=== PATIENT | female | born 1945 | race Caucasian/White ===

== ENCOUNTER → 2020-12-19 11:22 | Outpatient (CLI) | payer MEDICARE, SELFPAY ==
[2020-12-19 12:31] LABS: HDL Cholesterol 93 mg/dL (40-60); Triglycerides 137 mg/dL (35-150); VLDL Cholesterol Calculated 27 mg/dL (2-30)
[2020-12-19 12:50] LABS: Cholesterol 354 mg/dL (140-199); LDL Cholesterol Calculated 234 mg/dL (<100)
[2020-12-19 12:53] LABS: TSH w/ Reflex to FT4 0.69 uIU/mL (0.47-4.68)
== END ==
PROVIDERS: PCP Student in an Organized Health Care Education/Training Program; Referring Provider Student in an Organized Health Care Education/Training Program; Visit Provider Student in an Organized Health Care Education/Training Program
DX: E03.9 Hypothyroidism, unspecified (principal); E78.2 Mixed hyperlipidemia
CPT/HCPCS: 36415; 80061; 84443

== ENCOUNTER → 2021-01-25 10:09 | Outpatient (CLI) | payer MEDICARE, SELFPAY ==
--- NOTE | 2021-01-25 10:10 | DI.RAD.S_ITS ---
PROCEDURE: FL BARIUM SWALLOW W SPEECH INDICATIONS: F/u aspiration seen on outside CT COMPARISON: None. TECHNIQUE: Examination was conducted in conjunction with speech pathology per standard protocol. In the lateral projection, filming was performed of the patient swallowing. AP projection filming may also be performed with patient swallowing. COMPARISON: FINDINGS: Function: The oral preparatory phase appears normal, with proper containment. The subsequent oral propulsive phase, pharyngeal phase, and esophageal phase of swallowing also appear normal with all proffered substances. No laryngotracheal penetration or aspiration. No pathologic vallecular pooling. Morphology: No cricopharyngeal bar is identified. No cervical esophageal webs. No Zenker's diverticulum. No strictures. IMPRESSION: Normal examination without evidence of laryngotracheal penetration or aspiration. Dictated by: Sierra Espana MD, PhD on 01/25/2021 at 14:50 Approved by: Sierra Espana MD, PhD on 01/25/2021 at 14:50
--- NOTE | 2021-01-25 10:10 | DI.US.S_ITS ---
PROCEDURE: US ABDOMEN LIMITED INDICATIONS: RIGHT LIVER LESION ON OUTSIDE CT TECHNIQUE: Real-time focused scanning was performed of the abdomen, with image documentation. COMPARISON: None. FINDINGS: Liver: Normal size and echotexture. No sonographic evidence of a solid mass. Gallbladder: No wall thickening, pericholecystic fluid, or shadowing gallstones. CBD: 4.4 mm. Pancreas: Normal appearance of the visualized pancreas. IMPRESSION: No significant abnormality. Dictated by: Dae Luu M.D. on 01/25/2021 at 12:08 Approved by: Dae Luu M.D. on 01/25/2021 at 12:10
--- NOTE | 2021-01-26 15:02 | ST.SWALLOW ---
Visit Care Team Role Provider Type Abraham Pan MD Attending Provider Physician Primary Care Provider Referring Provider Specialty: Internal Medicine Address: [address] [place] [address], [address], [place], [address] Email: [email or web address] Modified Barium Swallow Study TRACK WELDER Modified Barium Swallow Study Start: 01/26/21 10:31 Freq: Status: Active Protocol: Document 01/25/21 10:31 LNK (Rec: 01/26/21 11:19 LNK [id number]) Modified Barium Swallow Study Total Time Visit Start Time 13:30 Visit Stop Time 14:00 Total Visit Minutes [address] Pan Setting Setting Outpatient Care Patient Information Identification Type Name,Date of Patient History Pt is seen for a Modified Barium Swallow Study (MBSS) at the referral of Dr. Pan. Pt recently moved to [place], [place] from [facility] in October 2020. Pt has a medical history including hypothyroidism and a moderate sized hiatal hernia. She has recently developed GERD. Pt denies neck injuries or surgery. According to the pt, her physician in [place] had noticed something in her respiratory tract, left side, that looked like food in her lung. This prompted concern for aspiration. Pt described her swallow as I don't think I swallow enough, which elicits a tickle and then I cough. She also noted that she experiences coughing on more days that not. Subjective Observations Pt was seated in the fluoroscopy chair. Instructions and procedures were described for the pt, who indicated she understood and agreed to proceed. Patient Positioning Position View Lateral Imaging Lateral View Textures Administered Trials Presented Thin Liquid via Spoon,Thin Liquid via Cup,Octa Liquid via Cup,Pudding Thick Liquid via Spoon,Regular Textures, Barium Tablet Oral Phase Source: MBSIMP (TM) (C) Bolus Specific Scoring Grid Lip Closure No Impairment (WNL) Tongue Control During Bolus Hold No Impairment (WNL) Bolus Prep/Mastication No Impairment (WNL) Bolus Transport/Lingual Motion No Impairment (WNL) A/P Lingual Propulsion Delay No Oral Residue No Impairment (WNL) Residue Clearing No Impairment (WNL) Nasal Regurgitation No Additional Oral Phase Observations OME was WNL for strength and ROM. Diadochokinesis was WNL. Dentition was natural in good hygiene. ORAL PHASE OF SWALLOW: Pt demonstrated good mastication with a rotary chew . A-P propulsion was WNL. Minimal oral residue was observed following all swallows. Premature lingual spillage to the valeculla pre- swallow was observed indicating tongue base weakness. Small bilateral laryngoceles were noted. Pharyngeal Phase Source: MBSIMP (TM) (C) Bolus Specific Scoring Grid Delayed Initiation of Pharyngeal Swallow No Soft Palate Elevation No Impairment (WNL) Tongue Base Strength/Range of Motion Mild Impairment Residue Along the Tongue Base No Laryngeal Elevation Mild Impairment Anterior Hyoid Movement Mild Impairment Epiglottic Range of Motion Mild Impairment Vallecular Residue Yes Clearance of Vallecular Residue Minimal Impairment Laryngeal Vestibular Closure Mild Impairment Pharyngeal Stripping Wave WFL Posterior Pharyngeal Wall Residue Yes Clearance of Posterior Pharyngeal Wall WFL Residue Upper Esophageal Sphincter Opening Minimal Impairment Residue in the Pyriform Sinuses No Esophageal Clearance Upright Position WFL Pharyngoesophageal Backflow Observed No A/P View A/P View Observations Additional Observations Mildly reduced hyolaryngeal elevation and forward movement was observed, directly impacting the epiglottic inversion as well as the diameter and duration of the UES opening. Reduced contact of the linguopharyngeal muscles was noted, resulting in vallecular pooling of residue. There was flash penetration in the laryngeal vestibule x3. Mild pooling was noted in the valeculla and the posterior pharyngeal wall , which was cleared with subsequent swallows. The barium tablet was swallowed with water. Trace residue mixed with the water allowed for observation of flash penetration of the water resulting in the pt coughing. This was the only time the pt coughed during the MBSS. No aspiration was observed across all trials. Esophageal Observations Esophageal Function An A/P scan of the esophagus indicated that all substances had passed into the stomach. Clinical Impressions Dysphagia Type Mild pharyngeal dysphagia Findings Overall the pt presented with mild pharyngeal dysphagia characterized by reduced hyolaryngal elevation and forward movement, reduced epiglottic closure of the laryngeal vestibule with flash penetration. No aspiration was observed. Dysphagia therapy is recommended to improve laryngeal elevation and forward hyoid movement. Base of tongue and lingual exercises, pt education re: normal swallow and compensatory stategy will be provided for the pt. At this time no change in diet is recommended. it should be noted that flash penetration into the airway is considered to be normal for older pts. Rehabilitation Potential Excellent Patient Appropriate for Therapy Yes Recommendations Treatment Plan Therapy Recommendations Outpatient Speech Therapy, Lingual Exercises,Base of Tongue Exercises,Compensatory Strategy Education [employer] Fishing Vessel Goals Pt will safely tolerate the least restrictive diet without s/sx aspiration.
== END ==
PROVIDERS: PCP Student in an Organized Health Care Education/Training Program; Referring Provider Student in an Organized Health Care Education/Training Program; Visit Provider Student in an Organized Health Care Education/Training Program
DX: T17.908A Unspecified foreign body in respiratory tract, part unspecified causing other injury, initial encounter (principal); K76.9 Liver disease, unspecified
CPT/HCPCS: 74230; 76705; 92611

== ENCOUNTER → 2021-02-08 09:47 | Outpatient (CLI) | payer MEDICARE, SELFPAY ==
--- NOTE | 2021-02-08 09:51 | DI.RAD.S_ITS ---
PROCEDURE: XR DEXA AXIAL SKELETON INDICATIONS: eval and treat COMPARISON: None. FINDINGS: This blank DEXA report has been sent in error by the PACS system. The correct and complete report will be forthcoming in 1-2 days. Thank you for your patience and understanding. Dictated by: Sierra Espana MD, PhD on 02/08/2021 at 14:33 Approved by: Sierra Espana MD, PhD on 02/08/2021 at 14:33
== END ==
PROVIDERS: PCP Student in an Organized Health Care Education/Training Program; Referring Provider Student in an Organized Health Care Education/Training Program; Visit Provider Student in an Organized Health Care Education/Training Program
DX: M85.851 Other specified disorders of bone density and structure, right thigh (principal); Z78.0 Asymptomatic menopausal state
CPT/HCPCS: 77080

== ENCOUNTER 2021-03-06 09:09 | Outpatient (RCR) | payer MEDICARE, SELFPAY ==
--- NOTE | 2021-03-06 11:17 | ST.OPIE ---
Visit Care Team Role Provider Type Abraham Pan MD Attending Provider Physician Family Provider Primary Care Provider Referring Provider Specialty: Internal Medicine Address: [address] [place] [address], [address], [place], [address] Email: [email or web address] Speech-Language Pathology Initial Evaluation DAMASCENER Clinical Swallow Evaluation Start: 03/06/21 10:51 Freq: Status: Active Protocol: Document 03/06/21 10:52 LNK (Rec: 03/06/21 11:16 LNK [id number]) Clinical Swallow Evaluation Session Time Visit Start Time 09:30 Visit Stop Time 10:30 Total Visit Minutes 60 Referral Referring Provider Carolina Reason for Referral Follow up for MBSS Setting Assessment Location Outpatient Care Visit Type Note Type Initial evaluation Next Note Type Next Note Type Discharge Summary Patient Information Identification Type Name,Date of History Pt recently moved to [place], [place] from [facility] in October 2020. Pt has a medical history including hypothyroidism and a moderate sized hiatal hernia. She has recently developed GERD. Pt denies neck injuries or surgery. According to the pt, her physician in [place] had noticed something in her respiratory tract, left side, that looked like food in her lung. This prompted concern for aspiration. Pt described her swallow as I don't think I swallow enough, which elicits a tickle and then I cough. She also noted that she experiences coughing on more days that not. On MBSS, the pt presented with mild pharyngeal dysphagia characterized by reduced hyolaryngal elevation and forward movement, reduced epiglottic closure of the laryngeal vestibule with flash penetration. No aspiration was observed. Subjective Observations pt was on time for her appointment Objective Assessment Mental Status Alert,Responsive,Cooperative Comment Informal observations noted structures WNL for strength and ROM. See MBSS report for detail. Food and Liquid Trials Results No PO trials were assessed. Pt 's MBSS video was reviewed with the pt. She was initially shown a computer generated video of a normal swallow. Following that, pt's MBSS was watched in slow motion noting the structures, their placement and function relative to her swallow. Findings Swallowing Function Comments Mild pharyngeal phase dysphagia Comment Following her MBSS review, the diagnosis of mild pharyngeal dysphagia was discussed. A description of swallow therapy was provided. Pt indicated that currently, she is swallowing fine and decline further treatment. Signs of potential aspiration were described to pt with a recommendation to see her PCP if such symptoms are noted. Pt agreed. Impact on Safety and Functioning No limitations Recommendations Swallowing Treatment No
== END 2021-03-21 08:29 ==
LOC: SP 09:09
PROVIDERS: Family Provider Student in an Organized Health Care Education/Training Program; PCP Student in an Organized Health Care Education/Training Program; Referring Provider Student in an Organized Health Care Education/Training Program; Visit Provider Student in an Organized Health Care Education/Training Program
DX: T17.908D Unspecified foreign body in respiratory tract, part unspecified causing other injury, subsequent encounter (principal)
CPT/HCPCS: 92610

== ENCOUNTER → 2021-03-27 14:20 | Outpatient (CLI) | payer MEDICARE, SELFPAY ==
[2021-03-27 15:28] LABS: Cholesterol 238 mg/dL (140-199); HDL Cholesterol 95 mg/dL (40-60); LDL Cholesterol Calculated 118 mg/dL (<100); Triglycerides 123 mg/dL (35-150)
== END ==
PROVIDERS: Family Provider Student in an Organized Health Care Education/Training Program; PCP Student in an Organized Health Care Education/Training Program; Referring Provider Student in an Organized Health Care Education/Training Program; Visit Provider Student in an Organized Health Care Education/Training Program
DX: E03.9 Hypothyroidism, unspecified (principal); E78.49 Other hyperlipidemia; Z79.899 Other long term (current) drug therapy
CPT/HCPCS: 36415; 80061; 84443

== ENCOUNTER 2021-06-30 09:45 | Outpatient (RCR) | payer MEDICARE, SELFPAY ==
--- NOTE | 2021-05-05 15:52 | PT.OPPOC ---
Physical, Occupational & Speech Therapy At [facility] Current Diagnoses Benign paroxysmal vertigo, unspecified ear (05/05/21) Visit Care Team Role Provider Type Abraham Pan MD Attending Provider Physician Family Provider Primary Care Provider Referring Provider Specialty: Internal Medicine Address: [address] [place] [address], [address], [address] Email: [email or web address] Plan Of Care PT-OP-T Assessment and Plan Start: 05/04/21 15:52 Freq: Status: Active Protocol: Document 05/05/21 10:30 AMB (Rec: 05/05/21 15:52 AMB [id number]) Physical Therapy Assessment Rehab Potential Rehabilitation Potential Excellent Evaluation Complexity Number of Personal Factors/Comorbidities 1-2 Number of Body Systems Impaired 1-2 Clinical Presentation at Evaluation Stable Impairments Impairments Vestibular Goals One Impairment Vertigo Short Term Goal (STG) Dij will have a negative Atco- Hallpike test. STG Duration 4 weeks Prison Goal (LTG) Dij will look up without dizziness. LTG Duration 8 weeks Assessment Summary Assessment Dij attends physical therapy with torsional upbeating nystagmus with L Heath-Hallpike. Performed Rose x2 with good results, although was difficult to get good neck extension due to pt's chronic neck pain, may recheck horizontal canal next visit due to that. Pt would benefit from physical therapy to address BPPV. Physical Therapy Plan Frequency and Duration Frequency of Treatment 2x/Week Duration of Treatment 2 months Plan of Care Start Date 05/05/21 Plan of Care End Date 07/05/21 Therapeutic Interventions Therapeutic Interventions Balance Training,Manual Therapy,Neuromuscular Re- education,Self-Care/Home Management,Therapeutic Activities,Therapeutic Exercises,Vestibular Rehabilitation Next Visit Focus/Plan Next Note Type Treatment Note Next Visit Plan Recheck L DixHallpike, may check horizontal canal if needed Plan of Care Dates Plan of Care Start Date 05/05/21 Plan of Care End Date 07/05/21 Electronically Signed by: Rosy Miller, PT 05/05/21 0249 Please Sign and Return: I have reviewed this Plan of Care and certify that the skilled therapy services above are required to meet the patient?s needs. Physician Signature Date Printed Name and Credentials Clinical Instructor Signature Printed Name and Credentials
--- NOTE | 2021-05-05 15:52 | PT.OIE ---
Current Diagnoses Benign paroxysmal vertigo, unspecified ear (05/05/21) Past Medical History (Last Updated 12/28/20 @ 19:28 by Trina Fair) Anemia (~1970) Ankle pain (~2001) Anxiety (~1998) Chicken pox (~1952) Esophageal ring Fibroids (~1984) Fractures (~2017) Headache (~1965) Heavy menstrual period (~1957) Herpes simplex History of appendectomy (~1965) History of colonoscopy Liver spot Measles (~1953) Migraines (~1965) Mumps Osteoporosis Ovarian cyst (~1965) Painful menstrual periods (~1957) Sleep apnea (~2016) Thyroid nodule (~2017) Vertigo (~2019) Past Surgical History (Last Updated 12/28/20 @ 19:28 by Trina Fair) Anesthesia History of appendectomy (~1965) History of colonoscopy PID (pelvic inflammatory disease) (~1984) Uterine cyst (~1965) Visit Care Team Role Provider Type Abraham Pan MD Attending Provider Physician Family Provider Primary Care Provider Referring Provider Specialty: Internal Medicine Address: [address] [place] [address], [address], [facility] Email: [email or web address] Physical Therapy Initial Evaluation PT-OP-A Visit Information Start: 05/04/21 15:52 Freq: Status: Active Protocol: Document 05/05/21 10:30 AMB (Rec: 05/05/21 11:19 AMB [id number]) Out-Patient Physical Therapy Visit Information Visit Information Visit Type Initial Evaluation Visit Start Time 10:30 Visit Stop Time 11:15 Total Visit Minutes 45 Visit Number 1 PT-OP-B Current Condition Start: 05/04/21 15:52 Freq: Status: Active Protocol: Document 05/05/21 10:30 AMB (Rec: 05/05/21 11:19 AMB [id number]) Current Condition History of Current Condition Onset Date 6 weeks Current Complaints Dizziness History of Current Condition Swirling with getting into bed . Taking meclizine and it does help. Rolling over in bed is symptomatic. Previous episode of dizziness in February 2019, at that time was told it wasn't BPPV, but it did go away on its own. Personal Factors Other Personal Factors That May Effect Osteopenia, hx seizure at age Therapy/Recovery 21, neck pain., depression, PT-OP-C Subjective Start: 05/04/21 15:52 Freq: Status: Active Protocol: Document 05/05/21 10:30 AMB (Rec: 05/05/21 15:52 AMB [id number]) Patient Questionnaires Dizziness Handicap Inventory DHI Score 86 DHI Functional Impairment 80 to 99% Impaired (Score 80- 99) PT-OP-O Vestibular Start: 05/04/21 15:52 Freq: Status: Active Protocol: Document 05/05/21 10:30 AMB (Rec: 05/05/21 15:52 AMB [id number]) Vestibular Assessment Visual Testing Smooth Pursuits Horizontal WFL Smooth Pursuits Vertical WFL Saccades Horizontal WFL Saccades Vertical WFL Positional Testing Carriere-Hallpike Positive Left,Negative Right, Upbeating,< 60 Seconds PT-OP-T Assessment and Plan Start: 05/04/21 15:52 Freq: Status: Active Protocol: Document 05/05/21 10:30 AMB (Rec: 05/05/21 15:52 AMB [id number]) Physical Therapy Assessment Rehab Potential Rehabilitation Potential Excellent Evaluation Complexity Number of Personal Factors/Comorbidities 1-2 Number of Body Systems Impaired 1-2 Clinical Presentation at Evaluation Stable Impairments Impairments Vestibular Goals One Impairment Vertigo Short Term Goal (STG) Dij will have a negative Carriere- Hallpike test. STG Duration 4 weeks [facility] Goal (LTG) Dij will look up without dizziness. LTG Duration 8 weeks Assessment Summary Assessment Dij attends physical therapy with torsional upbeating nystagmus with L Carriere-Hallpike. Performed Rose x2 with good results, although was difficult to get good neck extension due to pt's chronic neck pain, may recheck horizontal canal next visit due to that. Pt would benefit from physical therapy to address BPPV. Physical Therapy Plan Frequency and Duration Frequency of Treatment 2x/Week Duration of Treatment 2 months Plan of Care Start Date 05/05/21 Plan of Care End Date 07/05/21 Therapeutic Interventions Therapeutic Interventions Balance Training,Manual Therapy,Neuromuscular Re- education,Self-Care/Home Management,Therapeutic Activities,Therapeutic Exercises,Vestibular Rehabilitation Next Visit Focus/Plan Next Note Type Treatment Note Next Visit Plan Recheck L DixHallpike, may check horizontal canal if needed
--- NOTE | 2021-05-09 09:50 | PT.OTN ---
Current Diagnoses Benign paroxysmal vertigo, unspecified ear (05/09/21) Physical Therapy Treatment Note PT-OP-A Visit Information Start: 05/04/21 15:52 Freq: Status: Active Protocol: Document 05/09/21 09:03 AMB (Rec: 05/09/21 09:50 AMB [id number]) Out-Patient Physical Therapy Visit Information Visit Information Visit Type Treatment Note Visit Start Time 09:00 Visit Stop Time 09:40 Total Visit Minutes 40 Visit Number 2 PT-OP-B Current Condition Start: 05/04/21 15:52 Freq: Status: Active Protocol: Document 05/05/21 10:30 AMB (Rec: 05/05/21 11:19 AMB [id number]) Current Condition History of Current Condition Onset Date 6 weeks Current Complaints Dizziness History of Current Condition Swirling with getting into bed . Taking meclizine and it does help. Rolling over in bed is symptomatic. Previous episode of dizziness in February 2019, at that time was told it wasn't BPPV, but it did go away on its own. Personal Factors Other Personal Factors That May Effect Osteopenia, hx seizure at age Therapy/Recovery 21, neck pain., depression, PT-OP-C Subjective Start: 05/04/21 15:52 Freq: Status: Active Protocol: Document 05/09/21 09:03 AMB (Rec: 05/09/21 09:50 AMB [id number]) OP-PT Subjective Patient Comments Patient Comments Michell states she felt fairly off balance on Saturday, better yesterday. PT-OP-O Vestibular Start: 05/04/21 15:52 Freq: Status: Active Protocol: Document 05/05/21 10:30 AMB (Rec: 05/05/21 15:52 AMB [id number]) Vestibular Assessment Visual Testing Smooth Pursuits Horizontal WFL Smooth Pursuits Vertical WFL Saccades Horizontal WFL Saccades Vertical WFL Positional Testing Heath-Hallpike Positive Left,Negative Right, Upbeating,< 60 Seconds PT-OP-Q Treatments Start: 05/04/21 15:52 Freq: Status: Active Protocol: Document 05/09/21 09:03 AMB (Rec: 05/09/21 09:50 AMB [id number]) Self-Care/Home Management Treatment Education Caregiver Education Educated pt on nature of BPPV, that she could get a seperate case from it years in the future, she should be able to quickly improve from this bout though given no nystagmus today. Anatomy of inner ear and self Rose explained. Canalithic Repositioning BPPV Treatment Rose Affected Canal(s) L Comments negative today, rechecked supine roll and R DixHallpike PT-OP-T Assessment and Plan Start: 05/04/21 15:52 Freq: Status: Active Protocol: Document 05/09/21 09:03 [facility] (Rec: 05/09/21 09:50 [facility] [id number]) Physical Therapy Assessment Assessment Summary Assessment No nystagmus with any positional testing today, educated pt in home Rose, could also consider VOR testing/balance training if sx of feeling off balance do not improve in next week, but also educated pt that feeling a bit off for a week after treatment is considered normal .
--- NOTE | 2021-05-16 13:00 | PT.OTN ---
Current Diagnoses Benign paroxysmal vertigo, unspecified ear (05/16/21) Physical Therapy Treatment Note PT-OP-A Visit Information Start: 05/04/21 15:52 Freq: Status: Active Protocol: Document 05/16/21 11:15 AMB (Rec: 05/16/21 12:59 AMB [id number]) Out-Patient Physical Therapy Visit Information Visit Information Visit Type Treatment Note Visit Start Time 11:15 Visit Stop Time 12:00 Total Visit Minutes 45 Visit Number 3 PT-OP-B Current Condition Start: 05/04/21 15:52 Freq: Status: Active Protocol: Document 05/05/21 10:30 AMB (Rec: 05/05/21 11:19 AMB [id number]) Current Condition History of Current Condition Onset Date 6 weeks Current Complaints Dizziness History of Current Condition Swirling with getting into bed . Taking meclizine and it does help. Rolling over in bed is symptomatic. Previous episode of dizziness in February 2019, at that time was told it wasn't BPPV, but it did go away on its own. Personal Factors Other Personal Factors That May Effect Osteopenia, hx seizure at age Therapy/Recovery 21, neck pain., depression, PT-OP-C Subjective Start: 05/04/21 15:52 Freq: Status: Active Protocol: Document 05/16/21 11:15 AMB (Rec: 05/16/21 12:59 AMB [id number]) OP-PT Subjective Patient Comments Patient Comments Michell reports resolution of her vertigo but she did have a fall on Saturday. Overall feels off when turning head or looking up still, but no spinning. Reports about 4 falls in the last 6 months. PT-OP-O Vestibular Start: 05/04/21 15:52 Freq: Status: Active Protocol: Document 05/05/21 10:30 AMB (Rec: 05/05/21 15:52 AMB [id number]) Vestibular Assessment Visual Testing Smooth Pursuits Horizontal WFL Smooth Pursuits Vertical WFL Saccades Horizontal WFL Saccades Vertical WFL Positional Testing [place]-Hallpike Positive Left,Negative Right, Upbeating,< 60 Seconds PT-OP-Q Treatments Start: 05/04/21 15:52 Freq: Status: Active Protocol: Document 05/16/21 11:15 AMB (Rec: 05/16/21 12:59 AMB [id number]) Neuro Re-Education Treatment Balance Activities DGI Details 17/24 Comments horizontal head turns -veered heavily and had to slow down, vertical head turns slightly improved, mild veering with fast walking 2 Details NBOS EC Reps/Duration 30x2 Comments increased ankle sway 1 Details EC foam Comments fall Vestibular Rehabilitation VOR Retraining Comments standing, WBOS, thumb PT-OP-T Assessment and Plan Start: 05/04/21 15:52 Freq: Status: Active Protocol: Document 05/16/21 11:15 AMB (Rec: 05/16/21 12:59 AMB [id number]) Physical Therapy Assessment Goals One Impairment Vertigo Short Term Goal (STG) Dij will have a negative Heath- Hallpike test. STG Duration MET Clinical Social Work Therapist Goal (LTG) Dij will have will look up without dizziness. LTG Duration PROGRESS MADE Assessment Summary Assessment No nystagmus with left Heath Hallpike today. Pt did have 5 line change in DVA, LOB with foam and EC. Gave VOR and Romberg for HEP. Physical Therapy Plan Next Visit Focus/Plan Next Note Type Treatment Note Next Visit Plan Check VOR and rhomberg
--- NOTE | 2021-06-01 16:20 | PT.OTN ---
Current Diagnoses Benign paroxysmal vertigo, unspecified ear (05/29/21) Physical Therapy Treatment Note PT-OP-A Visit Information Start: 05/04/21 15:52 Freq: Status: Active Protocol: Document 05/29/21 09:10 AMB (Rec: 05/29/21 09:45 AMB [id number]) Out-Patient Physical Therapy Visit Information Visit Information Visit Type Treatment Note Visit Start Time 09:05 Visit Stop Time 09:45 Total Visit Minutes 45 Visit Number 4 PT-OP-B Current Condition Start: 05/04/21 15:52 Freq: Status: Active Protocol: Document 05/05/21 10:30 AMB (Rec: 05/05/21 11:19 AMB [id number]) Current Condition History of Current Condition Onset Date 6 weeks Current Complaints Dizziness History of Current Condition Swirling with getting into bed . Taking meclizine and it does help. Rolling over in bed is symptomatic. Previous episode of dizziness in February 2019, at that time was told it wasn't BPPV, but it did go away on its own. Personal Factors Other Personal Factors That May Effect Osteopenia, hx seizure at age Therapy/Recovery 21, neck pain., depression, PT-OP-C Subjective Start: 05/04/21 15:52 Freq: Status: Active Protocol: Document 05/29/21 09:00 AMB (Rec: 06/01/21 16:17 AMB [id number]) OP-PT Subjective Patient Comments Patient Comments Michell is feeling much better, but continues to have low level feelings of being off balance at times, VOR exercises are challenging. PT-OP-O Vestibular Start: 05/04/21 15:52 Freq: Status: Active Protocol: Document 05/05/21 10:30 AMB (Rec: 05/05/21 15:52 AMB [id number]) Vestibular Assessment Visual Testing Smooth Pursuits Horizontal WFL Smooth Pursuits Vertical WFL Saccades Horizontal WFL Saccades Vertical WFL Positional Testing [place]-Hallpike Positive Left,Negative Right, Upbeating,< 60 Seconds PT-OP-Q Treatments Start: 05/04/21 15:52 Freq: Status: Active Protocol: Document 05/29/21 09:00 AMB (Rec: 06/01/21 16:17 AMB [id number]) Neuro Re-Education Treatment Balance Activities 1 Details EC Comments firm vs foam- better today Vestibular Rehabilitation VOR Retraining Comments standing, WBOS, thumb-- needs to be slow at this point so pt doesn't get double vision PT-OP-T Assessment and Plan Start: 05/04/21 15:52 Freq: Status: Active Protocol: Document 05/29/21 09:10 AMB (Rec: 05/29/21 09:45 [facility] [id number]) Physical Therapy Assessment Goals One Impairment Vertigo Short Term Goal (STG) Dij will have a negative [place]- Hallpike test. STG Duration MET Longterm Goal (LTG) Dij will have will look up without dizziness. LTG Duration PROGRESS MADE Assessment Summary Assessment Dij is overall doing much better, no BPPV sx, but VOR is continuing to be challenging, encouraged in continued progression and then will reassess in 3-4 weeks to make sure of full sx resolution. Physical Therapy Plan Next Visit Focus/Plan Next Note Type Treatment Note
--- NOTE | 2021-06-30 10:32 | PT.OTN ---
Current Diagnoses Benign paroxysmal vertigo, unspecified ear (06/30/21) Physical Therapy Treatment Note PT-OP-A Visit Information Start: 05/04/21 15:52 Freq: Status: Active Protocol: Document 06/30/21 09:45 AMB (Rec: 06/30/21 10:31 AMB [id number]) Out-Patient Physical Therapy Visit Information Visit Information Visit Type Treatment Note Visit Start Time 09:05 Visit Stop Time 09:45 Total Visit Minutes 45 Visit Number 5 PT-OP-B Current Condition Start: 05/04/21 15:52 Freq: Status: Active Protocol: Document 05/05/21 10:30 AMB (Rec: 05/05/21 11:19 AMB [id number]) Current Condition History of Current Condition Onset Date 6 weeks Current Complaints Dizziness History of Current Condition Swirling with getting into bed . Taking meclizine and it does help. Rolling over in bed is symptomatic. Previous episode of dizziness in February 2019, at that time was told it wasn't BPPV, but it did go away on its own. Personal Factors Other Personal Factors That May Effect Osteopenia, hx seizure at age Therapy/Recovery 21, neck pain., depression, PT-OP-C Subjective Start: 05/04/21 15:52 Freq: Status: Active Protocol: Document 06/30/21 09:45 AMB (Rec: 06/30/21 10:31 AMB [id number]) OP-PT Subjective Patient Comments Patient Comments This last month has had two times with balance issues. Got up in the middle of the night and was a little off kilter. PT-OP-O Vestibular Start: 05/04/21 15:52 Freq: Status: Active Protocol: Document 05/05/21 10:30 AMB (Rec: 05/05/21 15:52 AMB [id number]) Vestibular Assessment Visual Testing Smooth Pursuits Horizontal WFL Smooth Pursuits Vertical WFL Saccades Horizontal WFL Saccades Vertical WFL Positional Testing [place]-Hallpike Positive Left,Negative Right, Upbeating,< 60 Seconds PT-OP-Q Treatments Start: 05/04/21 15:52 Freq: Status: Active Protocol: Document 06/30/21 09:45 AMB (Rec: 06/30/21 10:31 AMB [id number]) Neuro Re-Education Treatment Balance Activities DGI Details 23/24 Comments needed railing for stairs 2 Details foam Comments EO-ok, EC LOB Vestibular Rehabilitation VOR Retraining Comments standing, does continue to get double vision PT-OP-T Assessment and Plan Start: 05/04/21 15:52 Freq: Status: Active Protocol: Document 06/30/21 09:45 AMB (Rec: 06/30/21 10:31 AMB [id number]) Physical Therapy Assessment Goals One Impairment Vertigo Short Term Goal (STG) Dij will have a negative [place]- Hallpike test. STG Duration MET Agricultural Extension Agent Goal (LTG) Dij will have will look up without dizziness. LTG Duration MET Assessment Summary Assessment Pt has returned to gardening. Notably improved DGI and less veering today. Continues to get double vision with VOR exercise. Encouraged to get into regular exercise program. Foam EC balance was challenged today, but otherwise doing well. No signs of BPPV, but chronic poor vestibular function, but has tools to work on independently at home. Physical Therapy Plan Discharge Physical Therapy Discharge Reasons Goals Met
== END 2021-07-07 10:24 ==
LOC: PHYS 09:45
PROVIDERS: Family Provider Student in an Organized Health Care Education/Training Program; PCP Student in an Organized Health Care Education/Training Program; Referring Provider Student in an Organized Health Care Education/Training Program; Visit Provider Student in an Organized Health Care Education/Training Program
DX: H81.10 Benign paroxysmal vertigo, unspecified ear (principal)
CPT/HCPCS: 95992; 97112; 97161; 97535